=== PATIENT | male | born 1930 | race Caucasian/White ===

== ENCOUNTER 2021-08-24 08:39 | Emergency (ER) | payer MEDICARE ==
[~2021-08-24] VITALS: Ht 172.7 cm; Wt 103.6 kg
[2021-08-24] MEDS ORDERED: normal saline 1000ML IV soln IVB ONE (08:45)
--- NOTE | 2021-08-24 09:11 | NUR ---
CALLED [employer]... THEY STATED THIS HAS BEEN HAPPENING FOR THE LAST WEEK OR SO. STATES THAT WHEN PT. STANDS UP FROM HAVING A BOWEL MOVEMENT HE HAS BEEN TURNING PALE AND WANTING TO FALL... TODAY THEY STATED IT WAS A SEIZURE AND WHEN HE FELL HE STRUC HIS HEAD ON THE FLOOR WHICH IS CEMENT COVERED BY THIN INDOOR OUTDOOR CARPED.. PT. HAS A LARGE ABBRASION ACROSS HIS FOREHEAD ABOUT AN INCH IN A HALF WIDE BY 3.5 INCHES LONG. NO BLEEDING NOTED ... EMS STATED THAT THEY STARTED AN IV AND PT. PULLED IT OUT BUT WHILE ATTEMPTING TO HOLD HIS ARM DOWN A SKIN TEAR OCCURED. LEFT FOREARM
[2021-08-24 09:47] LABS: ALANINE AMINOTRANSFERASE 109 U/L (12-78); ALBUMIN 2.4 G/DL (3.4-5.0); ALBUMIN/GLOBULIN RATIO 0.6 (1.1-1.5); ALKALINE PHOSPHATASE 61 IU/L (46-116); ANION GAP 11 (8-16); ASPARTATE AMINO TRANSFERASE 83 U/L (10-37); BILIRUBIN,TOTAL 0.8 MG/DL (0.1-1.0); BLOOD UREA NITROGEN 40 MG/DL (7-18); BUN/CREATININE RATIO 20.3 (5.4-32.0); CALCIUM 8.2 MG/DL (8.5-10.1); CHLORIDE 108 MMOL/L (99-107); CREATINE KINASE 115 U/L (39-308); CREATININE 1.97 MG/DL (0.60-1.10); SODIUM 145 MMOL/L (135-145); TOTAL CARBON DIOXIDE 25.9 MMOL/L (24-32); TOTAL PROTEIN 6.6 G/DL (6.4-8.2); eGFR 32 ML/MIN
[2021-08-24 09:50] LABS: GLUCOSE 152 MG/DL (70-104)
[2021-08-24 09:54] LABS: BASOPHILS % (AUTO) 0.4 % (0-1); EOSINOPHILS % (AUTO) 0 % (0-6); HEMATOCRIT 46.9 % (42.0-52.0); HEMOGLOBIN 15.5 g/dl (14.0-17.9); LYMPHOCYTES % (AUTO) 21.7 % (21-51); MEAN CORPUSCULAR HEMOGLOBIN 29.4 PG (27.0-31.0); MEAN CORPUSCULAR HGB CONC 32.9 g/dL (33.0-36.5); MEAN CORPUSCULAR VOLUME 89.4 FL (78-98); MEAN PLATELET VOLUME 8.4 FL (7.4-10.4); MONOCYTES # (AUTO) 1.1 X10'3 (0-0.9); MONOCYTES % (AUTO) 7.6 % (2-12); NEUTROPHILS # (AUTO) 9.7 X10'3 (1.8-7.7); NEUTROPHILS % (AUTO) 70.3 % (42-75); PLATELET COUNT 257 X10'3 (140-440); RED BLOOD COUNT 5.25 X10'6 (4.70-6.10); RED CELL DISTRIBUTION WIDTH 14.8 % (11.5-14.5); WHITE BLOOD COUNT 13.8 X10'3 (4.5-11.0)
[2021-08-24] MEDS ORDERED: dexamethasone sod phosphate 10mg/ml inj IV STA (10:14)
[2021-08-24] MEDS ORDERED: CefTRIAXone 2gm/D5W 50ml BAG 50 ML IV ONE (10:15)
[2021-08-24] MEDS ORDERED: azithromycin/NS 500mg/250ml 250 ML IV ONE (10:15)
[2021-08-24 11:19] LABS: CLARITY,URINE CLEAR (Clear); COLOR,URINE YELLOW (Yellow); GLUCOSE, URINE NEGATIVE (Neg); KETONES,URINE NEGATIVE (Neg); LEUKOCYTE ESTERASE ,URINE NEGATIVE (Neg); NITRITES, URINE NEGATIVE (Neg); OCCULT BLOOD,URINE NEGATIVE (Neg); PROTEIN,URINE NEGATIVE (Neg); UA COLLECTION TYPE NON-SPECIFIED; UROBILINOGEN,URINE 0.2 E.U/dL (0.2-1.0)
[2021-08-24 17:08] VITALS: BP 131/77
== END 2021-08-24 18:00 | disposition home or self-care (01) ==
LOC: ER 08:39
DX: S00.31XA Abrasion of nose, initial encounter (principal); S00.81XA Abrasion of other part of head, initial encounter; E86.0 Dehydration; R55 Syncope and collapse; J18.9 Pneumonia, unspecified organism; F03.91 Unspecified dementia, unspecified severity, with behavioral disturbance; Z86.16 Personal history of COVID-19; Z88.0 Allergy status to penicillin; W19.XXXA Unspecified fall, initial encounter; Y93.89 Activity, other specified; Y92.89 Other specified places as the place of occurrence of the external cause; Y99.8 Other external cause status
CPT/HCPCS: 36415; 70450; 71045; 72125; 80053; 81003; 82550; 82948; 85025; 93005; 96361; 96365; 96366; 96368; 99285; J0456; J0696; J1100; J7030; 96367